=== PATIENT | male | born 1960 | race Caucasian/White ===

== ENCOUNTER 2021-03-06 12:06 | Emergency (ER) | payer SELFPAY ==
[~2021-03-06] VITALS: Ht 172.7 cm; Wt 68.1 kg
[~2021-03-06 12:06] MED LIST: OXYC5TAB98 PO; SULF-169 PO
[2021-03-06] MEDS ORDERED: HYDROcodone/APAP 10/325 MG TABLET PO ONE (15:00)
--- NOTE | 2021-03-06 15:13 | NUR ---
ALL RESULTS BACK, PT FOR RECHECK. VSS/UPDATED IN COMPUTER.
[2021-03-06] MEDS ORDERED: DIAZEPAM 5 MG TABLET PO ONE (16:00)
[2021-03-06] MEDS ORDERED: DIAZEPAM 5 MG TABLET ONE (16:14)
[2021-03-06 16:15] LABS: BASOPHILS % (AUTO) 1 % (0-1); EOSINOPHILS % (AUTO) 2 % (1-7); HCT (SEDRATE) 44.7 % (39.2-51.8); LYMPHOCYTES % (AUTO) 12 % (22-44); MEAN CORPUSCULAR HEMOGLOBIN 31.6 pg (27.5-34.5); MEAN CORPUSCULAR HGB CONC 34.3 g/dL (33.2-36.2); MEAN PLATELET VOLUME 10.4 fL (7.4-10.4); MONOCYTES % (AUTO) 15 % (2-9); NEUTROPHILS % (AUTO) 71 % (42-75); PLATELET COUNT 220 x10^3/uL (130-400); RED BLOOD COUNT 4.83 x10^6/uL (4.38-5.82)
--- NOTE | 2021-03-06 16:15 | NUR ---
PT AWOKE FROM SLEEP TO PROVIDE ADDITIONAL MEDICATION FOR PAIN ORDERED BY ERP. PT STATES NO RELIEF OF PAIN AT THIS TIME. URINAL PROVIDED, PT AWARE OF LAB WORK AND URINALYSIS ORDERED.
[2021-03-06 16:16] LABS: MD NO
[2021-03-06 16:25] LABS: ANION GAP 7 mmol/L (5-15); CALCIUM 8.7 mg/dL (8.5-10.1); CHLORIDE 106 mmol/L (98-107); CREATININE 1.03 mg/dL (0.7-1.3)
--- NOTE | 2021-03-06 16:45 | NUR ---
PT SLEEPING SOUNDLY, AROUSABLE. PT STATES NO RELIEF FROM PAIN STILL.
--- NOTE | 2021-03-06 17:15 | NUR ---
ROUNDED ON PT, PT SLEEPING. PT FOR RECHECK
--- NOTE | 2021-03-06 18:15 | NUR ---
ATTEMPT TO DISCHARGE PT. PT STATES HE DOESN'T WANT TO LEAVE, WANTS "MORE PAIN MEDICATION". STATES NO RELIEF FROM PAIN. ERP NOTIFIED.
--- NOTE | 2021-03-06 18:55 | NUR ---
RECEIVED REPORT FROM MARIYA SMITH.
[2021-03-06] MEDS ORDERED: HYDROcodone/APAP 5/325 TABLET PO ONE (19:00)
[2021-03-06] MEDS ORDERED: TRIAMCINOLONE ACETONIDE 40 MG/ML, 1ML IM ONE (19:00)
[2021-03-06] MEDS ORDERED: KETOROLAC 30 MG/1 ML IM ONE (19:00)
[2021-03-06] MEDS ORDERED: KETOROLAC 60 MG/2 ML ONE (19:02)
[2021-03-06] MEDS ORDERED: HYDROcodone/APAP 5/325 TABLET ONE (19:03)
--- NOTE | 2021-03-06 19:15 | NUR ---
REPORT TO MIK SMITH, TRANSFER OF CARE AT THIS TIME.
[2021-03-06 20:20] VITALS: BP 103/69
== END 2021-03-06 20:37 | disposition home or self-care (01) ==
LOC: ED 14:36
DX: M54.16 Radiculopathy, lumbar region (principal); M54.5 Low back pain; M25.552 Pain in left hip
CPT/HCPCS: 36415; 72170; 73552; 80048; 85025; 85651; 86140; 96372; 99284; J1885; J3301